=== PATIENT | female | born 1950 | race Caucasian/White ===

== ENCOUNTER 2017-07-22 08:45 | Emergency (ER) | payer MEDICARE ==
[2017-07-22] MEDS ORDERED: NS 0.9% 1000 ML* 1,000 ML IV ONE (08:52)
[2017-07-22 09:11] LABS: ABS Basophils 0 10^3/ul (0-0.2); ABS Eosinophils 0.1 10^3/ul (0-0.6); ABS Lymphocytes 1.3 10^3/ul (1.0-4.8); ABS Monocytes 0.5 10^3/ul (0-0.8); ABS Neutrophils 2.6 10^3/ul (1.5-7.7); ABS Nucleated RBC 0 10^3/ul; Eosinophil % 1.5 % (0-6); Hematocrit 42 % (35-47); Lymphocyte % 28.3 % (25-47); Mean Corpuscular HGB Conc 34 g/dl (31-36); Mean Corpuscular Hemoglobin 30 pg (27-31); Mean Corpuscular Volume 91 fL (80-97); Mean Platelet Volume 8.3 um3 (7.4-10.4); Nucleated Red Blood Cells % 0.2; Platelet Count 179 10^3/ul (150-450); Red Cell Distribution Width 14 % (10.5-15); White Blood Count 4.5 10^3/ul (3.5-10.8)
[2017-07-22 09:29] LABS: EGFR Non-African American 70.3 (>60); INR 0.87 (0.77-1.02)
[2017-07-22 10:17] VITALS: BP 153/100
--- NOTE | 2017-07-22 10:17 | ED ---
Rich Razo Gabriel, scribed for Hany Pereyra on 07/22/17 at 0854 . Abdominal Pain/Female - HPI Summary HPI Summary: This patient is a 66 year old F BIBA to [facility] with a chief complaint of ABD pain that began 90 minutes [employer]. Pt has an umbilical hernia that she has had for 5 years and is usually able to reduce. This morning she states she was unable to reduce it which has caused a large amount of pain. The patient rates the pain 10/10 in severity. Symptoms aggravated by palpation and movement. Pt states she has been unable to pass gas. Patient denies n/v/d, diarrhea, and fever. - History of Current Complaint Chief Complaint: EDAbdPain Stated Complaint: ABD PAIN Time Seen by Provider: 07/22/17 08:48 Hx Obtained From: Patient Onset/Duration: Still Present Timing: Constant Severity Initially: Severe Severity Currently: Severe Pain Intensity: 10 Pain Scale Used: 0-10 Numeric Location: Umbilical Radiates: No Associated Signs and Symptoms: Positive: Negative - n/v/d, diarrhea, and fever. , Other: - unable to pass gas Allergies/Adverse Reactions: Allergies Allergy/AdvReac Type Severity Reaction Status Date / Time No Known Allergies Allergy Verified 07/05/16 08:28 PMH/Surg Hx/FS Hx/Imm Hx Cardiovascular History: Reports: Hx Hypertension Denies: Hx Myocardial Infarction, Hx Pacemaker/ICD, Hx Peripheral Vascular Disease Respiratory History: Denies: Hx Chronic Bronchitis, Hx Chronic Obstructive Pulmonary Disease (COPD ) GI History: Denies: Hx Gall Bladder Disease History: Denies: Hx Benign Prostatic Hyperplasia Musculoskeletal History: Denies: Hx Congenital Bone Abnormalities - Surgical History Surgery Procedure, Year, and Place: Appendectomy Infectious Disease History: No Infectious Disease History: Denies: Traveled Outside the [place] in Last 30 Days - Family History Known Family History: Positive: Hypertension - Social History Alcohol Use: Occasionally Hx Substance Use: No Substance Use Type: Reports: None Hx Tobacco Use: No Smoking Status (MU): Never Smoked Tobacco Review of Systems Negative: Fever Gastrointestinal: Other - cannot pass claudia Positive: Abdominal Pain. Negative: Vomiting, Diarrhea, Nausea All Other Systems Reviewed And Are Negative: Yes Physical Exam - Summary Physical Exam Summary: Appearance: Well appearing, no pain distress Skin: warm, dry, reflects adequate perfusion Head/face: normal Eyes: EOMI, HELENA ENT: normal Neck: supple, non-tender Respiratory: CTA, breath sounds present Cardiovascular: RRR, pulses symmetrical Abdomen: there is tenderness around the umbilicus with mild swelling Bowel: present Musculoskeletal: normal, strength/ROM intact Neuro: normal, sensory motor intact, A&Ox3 Triage Information Reviewed: Yes Vital Signs On Initial Exam: Initial Vitals Temp Pulse Resp BP Pulse Ox 97.8 F 92 19 158/90 98 07/22/17 08:50 07/22/17 08:50 07/22/17 08:50 07/22/17 08:50 07/22/17 08:50 Vital Signs Reviewed: Yes Diagnostics - Vital Signs Vital Signs Temp Pulse Resp BP Pulse Ox 07/22/17 08:50 97.8 F 92 19 158/90 98 - Laboratory Lab Results: Lab Results 07/22/17 07/22/17 07/22/17 Range/Units 09:01 09:01 09:01 WBC 4.5 (3.5-10.8) 10^3/ul RBC 4.60 (4.0-5.4) 10^6/ul Hgb 14.0 (12.0-16.0) g/dl Hct 42 (35-47) % MCV 91 (80-97) fL MCH 30 (27-31) pg MCHC 34 (31-36) g/dl RDW 14 (10.5-15) % Plt Count 179 (150-450) 10^3/ul MPV 8.3 (7.4-10.4) um3 Neut % (Auto) 58.6 (38-83) % Lymph % (Auto) 28.3 (25-47) % Bibb % (Auto) 10.6 H (0-7) % Eos % (Auto) 1.5 (0-6) % Baso % (Auto) 1.0 (0-2) % Absolute Neuts (auto) 2.6 (1.5-7.7) 10^3/ul Absolute Lymphs (auto) 1.3 (1.0-4.8) 10^3/ul Absolute Monos (auto) 0.5 (0-0.8) 10^3/ul Absolute Eos (auto) 0.1 (0-0.6) 10^3/ul Absolute Basos (auto) 0 (0-0.2) 10^3/ul Absolute Nucleated RBC 0 10^3/ul Nucleated RBC % 0.2 INR (Anticoag Therapy) 0.87 (0.77-1.02) APTT 32.1 (26.0-36.3) seconds Sodium 138 L (139-145) mmol/L Potassium 3.8 (3.5-5.0) mmol/L Chloride 106 (101-111) mmol/L Carbon Dioxide 25 (22-32) mmol/L Anion Gap 7 (2-11) mmol/L BUN 20 (6-24) mg/dL Creatinine 0.81 (0.51-0.95) mg/dL Est GFR ( Amer) 90.4 (>60) Est GFR (Non-Af Amer) 70.3 (>60) BUN/Creatinine Ratio 24.7 H (8-20) Glucose 131 H (70-100) mg/dL Calcium 9.2 (8.6-10.3) mg/dL Total Bilirubin 0.80 (0.2-1.0) mg/dL AST 22 (13-39) U/L ALT 21 (7-52) U/L Alkaline Phosphatase 61 (34-104) U/L Troponin I 0.00 (<0.04) ng/mL Total Protein 6.8 (6.4-8.9) g/dL Albumin 4.0 (3.2-5.2) g/dL Globulin 2.8 (2-4) g/dL Albumin/Globulin Ratio 1.4 (1-3) Lipase 19 (11.0-82.0) U/L Result Diagrams: 07/22/17 09:01 07/22/17 09:01 Lab Statement: Any lab studies that have been ordered have been reviewed, and results considered in the medical decision making process. Re-Evaluation - Re-Evaluation First Eval Re-Evaluation Time: 10:02 Change: Improved Comment: The patients hernia spontaneously reduced. She is pain free, is refusing CT, and would like to go home. Abdominal Pain Fem Course/Dx - Course Course Of Treatment: This patient is a 66 year old F BIBA to [facility] with a chief complaint of ABD pain that began 90 minutes [employer]. Pt has an umbilical hernia that she has had for 5 years and is usually able to reduce. This morning she states she was unable to reduce it which has caused a large amount of pain. The patient rates the pain 10/10 in severity. Symptoms aggravated by palpation and movement. Pt states she has been unable to pass gas. Patient denies n/v/d, diarrhea, and fever. The patients hernia spontaneously reduced. She is pain free, is refusing CT, and would like to go home. Dx reducing umbilical hernia with spontaneous resolution and ABD pain. Blood work obtained. In the ED course the patient was given IV fluids. Patient will be discharged and follow up from Dr. Tsai. The patient is agreeable with this plan.umblical herni reduced spontaneously and she do not want ct of abdomen and pelvis so will dc home. - Diagnoses Differential Diagnosis: Positive: Bowel Obstruction, Diverticulitis, Other - umblical hernia Provider Diagnoses: Abdominal pain, Recurrent umbilical hernia Discharge - Sign-Out/Discharge Documenting (check all that apply): Discharge/Admit/Transfer - Discharge Plan Condition: Stable Disposition: HOME Patient Education Materials: Umbilical Hernia (ED) Referrals: Alessio Tsai MD [Medical Doctor] - 3 Days Additional Instructions: RETURN TO THE ER FOR ANY NEW OR WORSENING SYMPTOMS - Billing Disposition and Condition Condition: STABLE Disposition: HOME The documentation as recorded by the [facility] accurately reflects the service I personally performed and the decisions made by , Hany Pereyra.
== END 2017-07-22 10:16 | disposition home or self-care (01) ==
LOC: ED 08:45
DX: R10.9 Unspecified abdominal pain (principal); K42.9 Umbilical hernia without obstruction or gangrene
CPT/HCPCS: 36415; 80053; 83690; 84484; 85025; 85610; 85730; 96360; 99282